=== PATIENT | female | born 1960 | race Caucasian/White ===

== ENCOUNTER 2018-05-05 09:28 | Day surgery (SDC) | payer OTHER, SELFPAY ==
[2018-05-02 14:58] VITALS: BMI 21.4
[2018-05-05] VITALS (9 sets, daily range): BP systolic 104–131; BP diastolic 61–75; PULSE 54–75; RESP 12–18; TEMP 36.3–37.1; O2SAT 96–99; BMI 21.4
--- NOTE | 2018-05-05 | PATH_ITS ---
[facility] Accession Number: [id number] . 01 Material submitted: . GANGLION CYST RIGHT ANKLE . 02 Diagnosis: Tissue From Right Ankle: Ganglion cyst, negative for atypia. MRV/05/08/2018 . 02 Electronically signed: . Edison Watkins MD, Pathologist NPI- [id number] . 01 Gross description: . Received in formalin, labeled ganglion cyst R ankle, are two pieces of rivero-white membranous tissue (2.0 x 1.1 x 0.2 cm and 1.2 x 0.3 x 0.3 cm). Each piece is trisected and entirely submitted in cassette A1. ([id number]) /MRV . 02 Pathologist provided ICD-10: M67.471 . 02 CPT . 177249 Performed at: 01 [facility] [address], [place], [place] [id number] MD Quan Walden MD Phone: [phone] Performed at: 02 [facility] [address] [place], [place] [id number] MD Montse Florian MD Phone: [phone]
[2018-05-05] MEDS: LACTATED RINGERS 1,000 ML 42 ML IV (09:54)
--- NOTE | 2018-05-05 11:53 | PM.PREOP ---
Pre-operative Note Interval Note History & Physical reviewed/Exam performed by Physician: Yes Changes to H&P: No
--- NOTE | 2018-05-05 11:55 | PM.OP.1 ---
Operative Date/Time/Diagnoses Date of procedure: 05/05/18 Time of procedure: 11:55 Pre-op diagnosis: Right foot ganglion cyst Post-op diagnosis: same Procedure & Clinicians Procedure: Right foot ganglion cyst excision Indications: Large soft tissue mass on top of foot c/w ganglion cyst. Conservative measures failed to reduce it or alleviate soreness and she wished to have surgical intervention at this time. Surgeon: Maru Stephens Click Yes if Unassisted: Yes Anesthesia Type: General Operative Notes Closure Type: primary Specimen(s): other (soft tissue suspect ganglion cyst sent to pathology for identification from right foot) Estimated Blood Loss (mL): 20 Blood products transfused: none Procedure in detail: The patient was brought to the operating room and placed on the operating table in the supine position. The tourniquet was placed about the ankle. Well padded appropriately aligned. After induction of general anesthesia the foot and ankle were prepped and draped in the usual aseptic manner. The tourniquet was inflated. Incision was made over the dorsal medial midfoot. The incision was deepened through subcutaneous tissues being careful to identify and retract all vital neural and vascular structures. All bleeders were cauterized and ligated as necessary. Around the talonavicular and navicular cuneiform joints was where it appeared to be the largest segment of ganglion cyst. The cyst itself appeared to be under the deep fascia and walled by the tibialis anterior tendon medially and the extensors dorsally laterally. It was not necessarily a singular unattached cyst with a stalk, but more like an area of fluid that had been set up with 4 hernandez, housing a viscous Apple jelly fluid. This extended distally and proximally in the same zone within that space and did not show any areas of necrosis on the bone, joint, or along the tendons. This was decompressed and sections of the wound wall that looks to be the ganglion cyst that had adhered were removed and sent to pathology for identification. The area was irrigated with copious amounts of normal sterile saline. The tourniquet was deflated, prompt hyperemic response was seen to the foot. There was an area on the bone at the proximal end of it that I had a question of possibly being an area that this may have been an instigater and this was cauterized. But no stalk was seen. Deep closure was performed using 4 0 Vicryl as well as subcutaneous closure. Three 0 nylon to the skin. Ft was dressed in a sterile lightly compressive dressing consisting of Adaptic, 4x4s, conform, Coban, and an William wrap with stockinette and a postsurgical shoe. She was transferred to the PACU with vital signs stable. Complications: none Condition: stable Disposition: PACU Plan for aftercare: Following a period of postoperative monitoring, the patient will be discharged home on written and oral postoperative instructions including keeping the dressing dry and intact, avoiding significant ambulation to the foot with the message for partial weight-bearing where she is able to put a little bit of weight on the foot but the majority of the 1st week I would really like her to try to not put weight on the foot much at all. DVT prevention techniques were reviewed as well, and at her 1st postoperative this will likely be a dressing change and review of pathology report. If it appears that there has been significant healing the sutures may be removed otherwise they can be removed the following week; once sutures have been removed, weight-bearing is appropriate.
[2018-05-05] MEDS: CEFAZOLIN 2 GM/100 ML FROZ.PIGGY IV (11:58)
--- NOTE | 2018-05-05 12:23 | SUR.OPER ---
Supine on padded OR bed, head on pillow, arms secured on padded arm boards at <90 degrees abduction, legs uncrossed, safety belt at thigh, prepped leg draped free.
[2018-05-05] MEDS: BUPIVACAINE 0.5% (PF) VIAL 30 ML INJ (12:44)
--- NOTE | 2018-05-05 13:53 | SUR.PHASEII ---
pt to opd from pacu at 1330 , report given by roman powers, foot elevated, pt drowsy, no co's of pain, co's of mild nausea , resting
[2018-05-05] MEDS: ONDANSETRON 4 MG/2 ML INJ IV (14:44)
--- NOTE | 2018-05-05 14:45 | SUR.PHASEII ---
pt co of increasing nausea at 1440 medicated for nausea , resting , leg elevated
--- NOTE | 2018-05-05 15:41 | SUR.PHASEII ---
1500 feeling better , leg elevated , mom at side , pt states shes ready to go , vss
--- NOTE | 2018-05-05 15:43 | SUR.PHASEII ---
1510 pt had emesis times two, feels much better, wants to go home
--- NOTE | 2018-05-05 15:44 | SUR.PHASEII ---
1520 pt ready to go home , no pain , nausea much better
--- NOTE | 2018-05-05 16:04 | SUR.PHASEI ---
1430 toes warm to touch, good senation
== END 2018-05-05 15:20 | disposition home or self-care (01) ==
PROVIDERS: PCP Physician Assistant Medical; Visit Provider Podiatrist
PROC: (CPT 28090; principal; 2018-05-05 11:30)
DX: M67.471 Ganglion, right ankle and foot (principal)
CPT/HCPCS: 28090; J0690; J1100; J1170; J2405; J2704; J3010